=== PATIENT | female | born 1935 | race Caucasian/White ===

== ENCOUNTER 2020-09-23 09:09 | Emergency (ER) | payer MEDICARE, OTHER ==
--- NOTE | 2020-09-23 09:13 | EDM.PDOC ---
ED HPI GENERAL MEDICAL PROBLEM - General Chief Complaint: Laceration Stated Complaint: STICHES REMOVAL Time Seen by Provider: 09/23/20 09:12 Source of Information: Reports: Patient History Limitations: Reports: No Limitations - History of Present Illness INITIAL COMMENTS - FREE TEXT/NARRATIVE: 85-year-old female history of TIA, GI bleed from ulcer, anxiety, depression presents with wound check and suture removal. She was seen here initially on 09/12/20 for nausea, vomiting, diarrhea for 3 days, she had a CT abdomen pelvis performed demonstrating no acute abnormalities, extensive blood work performed, urine demonstrated UTI. She was discharged with Macrobid. She returned on 09/16/20 after sustaining a fall while she was getting up off the toilet. She sustained a laceration to her right hand and had running stitches placed. She has had dizziness for "years" and her doctors in [place] has worked her up with no significant findings. She ambulates with no ADLs. 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 She has not followed up. She presents here today for suture removal. However her incision site was having drainage and it was red. She also notes drainage from her left eye for 1 day. She denies fever, chills, headache, chest pain, shortness of breath, abdominal pain, focal numbness or weakness. She does note chronic dizziness, nausea, decreased appetite for months. She recently moved here from [place] over and has not established care in [place]. ROS: A 10-point review of systems, other than pertinent positives and negatives as stated per HPI, is otherwise negative Past medical history: No additional pertinent history Past Surgical history: No additional pertinent history Social history: No additional pertinent history Family history: No additional pertinent history PHYSICAL EXAM General: AOx4, GCS = 15, No distress HEENT: dry mucous membrane, left eye with purulent drainage, slightly injected. Neck: supple, no meningismus, no Kernig or Brudzinski Cardiac: S1S2 RRR Respiratory: CTAB, no crackles or rales, no wheezing Abdomen: Soft, nontender, no rebound or guarding, nondistended, no pulsatile mass. Back: nontender Musculoskeletal: NVI distally, erythema and induration along linear incision site over the thenar eminence, there is a 1cm area of wound edge that has a 2mm gapping and poorly approximated no Kanavel sign. No drainage. Neuro: No focal deficits, CN 2 - 12 WNL. Normal gait. - Related Data Allergies Allergy/AdvReac Type Severity Reaction Status Date / Time Penicillins Allergy Anaphylactic Verified 09/23/20 09:30 Shock Home Meds: Home Meds Erythromycin Base [Erythromycin 0.5% Ophth Oint] 1 applic EYELF Q4H 5 Days #1 tube 09/23/20 [Rx] Ondansetron [Zofran ODT] 4 mg PO Q6H PRN #12 tab.dis 09/23/20 [Rx] Sulfamethoxazole/Trimethoprim [Bactrim Ds Tablet] 2 each PO BID #40 tablet 09/23/20 [Rx] cephALEXin [Keflex] 500 mg PO Q8H #30 cap 09/23/20 [Rx] ED ROS GENERAL - Review of Systems Review Of Systems: See Below (see dictation) ED EXAM, SKIN/RASH Exam: See Below (see dictation) Course - Vital Signs Last Recorded V/S: Last Vital Signs Temp 97.4 F 09/23/20 09:30 Pulse 74 09/23/20 09:30 Resp 18 09/23/20 09:30 BP 165/84 H 09/23/20 09:30 Pulse Ox 97 09/23/20 09:30 - Re-Assessments/Exams Free Text/Narrative Re-Assessment/Exam: 09/23/20 09:13 She is currently stable for discharge. I advised the patient to return to the ER for wound reevaluation in 3 days after initiating antibiotics today, or to return sooner if symptoms worsened, including fever, worsening drainage/pain, or any other worrisome symptoms. I instructed the patient to otherwise follow up with clinic in 3 days. MEDICAL DECISION MAKING: I reviewed the patients past medical records, lab and radiographic findings. I discussed the case with the patient. My differential diagnosis included: Wound infection, abscess, cellulitis. I doubt flexor tenosynovitis, she had no Kanavel sign. There is localized redness and induration along the incision site, the laceration wound had an 1 cm area that was not well approximated, however no drainage was noted. Wound closure deferred for concern of underlying infection. I instructed her to start taking antibiotics today and return in 3 days for wound check. She has previously tolerated Keflex with no issues. Given strict return precautions to return sooner for fever, chills, worsening pain or drainage to the right hand. Departure - Departure Time of Disposition: 09:13 Disposition: Home, Self-Care 01 Condition: Good Clinical Impression: Wound infection, Conjunctivitis - Discharge Information *PRESCRIPTION DRUG MONITORING PROGRAM REVIEWED*: Not Applicable *COPY OF PRESCRIPTION DRUG MONITORING REPORT IN PATIENT YOLANDA: Not Applicable Prescriptions: Sulfamethoxazole/Trimethoprim [Bactrim Ds Tablet] 2 each PO BID #40 tablet Erythromycin Base [Erythromycin 0.5% Ophth Oint] 1 applic EYELF Q4H 5 Days #1 tube cephALEXin [Keflex] 500 mg PO Q8H #30 cap Ondansetron [Zofran ODT] 4 mg PO Q6H PRN #12 tab.dis PRN Reason: Vomiting Instructions: Wound Infection, How to Use Eye Drops and Eye Ointments Referrals: Zander Acevedo MD [Primary Care Provider] - 3 Days Forms: ED Department Discharge Additional Instructions: The need for follow-up, as well as the timing and circumstances, are variable depending upon the specifics of your emergency department visit. If you don't have a primary care physician on staff, we will provide you with a referral. We always advise you to contact your personal physician following an emergency department visit to inform them of the circumstance of the visit and for follow-up with them and/or the need for any referrals to a consulting specialist. The emergency department will also refer you to a specialist when appropriate. This referral assures that you have the opportunity for follow-up care with a specialist. All of these measure are taken in an effort to provide you with optimal care, which includes your follow-up. Under all circumstances we always encourage you to contact your private physician who remains a resource for coordinating your care. When calling for follow-up care, please make the office aware that this follow-up is from your recent emergency room visit. If for any reason you are refused follow-up, please contact the [facility] Emergency Department at and asked to speak to the emergency department charge nurse. If you do not have a primary care doctor, please follow up with the clinics below within 3 days. [facility] - Primary Care [address] [place] [address] [id number] [address] [address] [facility] - Neurology Professional Building [address] [place] [address], [address] [place] [address] Sepsis Event Note (ED) - Focused Exam Vital Signs: Vital Signs Temp Pulse Resp BP Pulse Ox 09/23/20 09:30 97.4 F 74 18 165/84 H 97
== END 2020-09-23 10:40 | disposition home or self-care (01) ==
LOC: EDBD 09:09 → MW.ED 09:09
DX: T81.49XA Infection following a procedure, other surgical site, initial encounter (principal); H10.9 Unspecified conjunctivitis; Z88.0 Allergy status to penicillin
CPT/HCPCS: 99282; 99283